=== PATIENT | male | born 1970 ===

== ENCOUNTER 2023-08-29 21:28 | Emergency (ER) | payer OTHER, SELFPAY ==
[2023-08-29 21:31] VITALS: BP 181/88; PULSE 66; RESP 20; TEMP 37.1; O2SAT 98
[2023-08-29 22:19] LABS: Influenza A QL RT-PCR Negative (Negative); Influenza B QL RT-PCR Negative (Negative); RSV RNA, RT-PCR Negative (Negative); SARS-CoV-2 RNA PCR Negative (Negative)
[2023-08-30 01:32] VITALS: BP 144/80; PULSE 64; RESP 15; O2SAT 95
[2023-08-30] MEDS: SODIUM CHLORIDE 0.9% IV 1,000 ML 999 ML IV CONT (01:32)
[2023-08-30 01:41] LABS: Basophils Absolute Auto 0.1 K/mm3 (0.0-0.1); Basophils Percent Auto 0.8 % (0.2-1.2); Eosinophils Absolute Auto 0.2 K/mm3 (0-0.3); Eosinophils Percent Auto 1.7 % (0-4.4); Hematocrit 40.5 % (42.0-52.0); Hemoglobin 14.1 g/dL (14.0-18.0); Immature Granulocyte Absolute 0.05 K/mm3 (0.00-0.031); Immature Granulocyte Percent A 0.5 % (0-0.5); Immature Platelet Fraction Pct 6.6 % (0.9-11.2); Lymphocytes Absolute Auto 1.48 K/mm3 (0.9-3.2); Lymphocytes Percent Auto 14.8 % (18.3-44.2); Mean Corpuscular HGB Conc 34.8 g/dl (32-36); Mean Corpuscular Hemoglobin 30.9 pg (26-34); Mean Corpuscular Volume 88.8 fl (80-100); Mean Platelet Volume 10.7 fl (7.4-10.4); Monocytes Percent Auto 9.5 % (2.6-8.5); Neutrophils Absolute Auto 7.3 K/mm3 (1.3-6.7); Neutrophils Percent Auto 72.7 % (45.5-73.1); Platelet Count Result 146 k/mm3 (150-375); Red Blood Count 4.56 M/mm3 (4.6-6.20); Red Cell Distribution Width 13.2 % (11.5-14.5)
[2023-08-30 01:47] LABS: Lactic Acid Reflex 1.1 mmol/L (0.7-2.0)
[2023-08-30 01:48] LABS: Alanine Aminotransferase 28 U/L (6-50); Albumin Level 4.2 g/dL (3.5-5.1); Alkaline Phosphatase 40 U/L (38-126); Anion Gap 6 mmol/L (4-12); Aspartate Amino Transferase 25 U/L (17-59); Bilirubin,Total 1.2 mg/dL (0.2-1.3); Blood Urea Nitrogen 17 mg/dL (9-20); Calcium 8.7 mg/dL (8.4-10.2); Carbon Dioxide 30 mmol/L (22-30); Chloride 106 mmol/L (98-107); Estimated CRCL calculation 103 ml/min; Estimated Glomerular Filt Rate > 60; Glucose 141 mg/dL (65-110); Potassium 3.1 mmol/L (3.4-5.0); Sodium 142 mmol/L (137-145)
[2023-08-30] MEDS: POTASSIUM CHLORIDE 20 MEQ PACKET (FOR LIQUID) 40 MEQ PO (02:04)
[2023-08-30 02:12] LABS: Appearance Urine Cloudy (Clear); Bacteria Urine None Seen /hpf; Bilirubin Urine Negative (Negative); Blood Urine Negative (Negative); Color Urine Yellow (Yellow); Glucose Urine UA 1+ mg/dL (Negative); Ketones Urine Negative (Negative); Leukocyte Esterase Ur Negative LEU/UL (Negative); Nitrate Urine Negative (Negative); Non Pathogenic Casts 0-2; Protein Urine Negative (Negative); RBC Urine 0-2 /hpf (0-2); Specific Grav Ur 1.019 (1.001-1.035); Squamous Epithelial Cell Urine None Seen /hpf (Few); WBC Urine 0-5 /hpf (0-3); pH Urine 7.5 (5.0-9.0)
[2023-08-30 02:30] LABS: Add Urine Microscopic? YES
--- NOTE | 2023-08-30 02:54 | ED.FEVER ---
HPI - Fever General Chief Complaint: Fever Stated Complaint: Fever, body aches Time Seen by Provider: 08/30/23 00:38 Source: patient and family Limitations: no limitations History of Present Illness HPI Narrative: Patient is a 53-year-old male presents to the emergency department complaining of fever, body aches, headache, rash in his left leg. Patient notes yesterday he was having some chills and then took his temperature and was found to be 103 and then took Tylenol and came down, notes the was also having some body aches which have persisted into today and also mild headache which is overall been improving with Tylenol. Patient then noticed that his left leg. I have rash on a which he has not seen before And it is painful. Patient denies chest pain, difficulty breathing, history of blood clots. Patient admits to history of bilateral lower extremity swelling but never unilateral. Patient denies cough, your pain, sore throat, nasal congestion, runny nose, numbness, weakness, recent injuries, recent illness, sick contacts, confusion. Related Data Home Medications Medication Instructions Recorded Confirmed cannabis percutaneous 01/04/21 02/11/23 cholecalciferol (vitamin D3) 50 2,000 unit PO DAILY 01/04/21 02/11/23 mcg (2,000 unit) capsule Allergies Allergy/AdvReac Type Severity Reaction Status Date / Time No Known Allergies Allergy Verified 08/29/23 21:34 Review of Systems Review of Systems: A 10 system review of systems was completed on the patient and is negative except for what is stated in the HPI. Nursing and ancillary documentation was reviewed. [facility] Past Medical History Medical History (Updated 08/30/23 @ 03:27 by Kush Hernandez DO) Abnormal levels of other serum enzymes AST 47 and ALT 38 on 01/22/2021. AST 32 and ALT 27 on 01/16/2022. Aortic stenosis with mitral and aortic insufficiency echo May, with severe elevated AH with ejection fraction 70% with moderate to severe aortic stenosis with moderate regurgitation with [id number] mitral valve regurgitation and diastolic dysfunction. BMI 38.0-38.9,adult BMI 40.0-44.9, adult COVID-19 (~08/2021) Encounter for prostate cancer screening PSA 0.5 on . PSA 1.4 on 01/16/2022. PSA 0.6 on 02/22/2023. Encounter for wellness examination in adult Morbid obesity with BMI of 40.0-44.9, adult Obesity (BMI 30-39.9) Protein in urine (01/22/21) 1+ protein on 01/22/2021. Urinalysis normal on 02/22/2023. Thoracic ascending aortic aneurysm (09/12/21) 4.5 cm ascending thoracic aortic aneurysm 4.[address] 09/12/2021. Ureteral stone Vitamin D deficiency, unspecified Vitamin-D elevated at 79.5 on 01/22/2021. Level normal at 43.6 on 01/16/2022. Family History Family History (Updated 08/24/18 @ 07:44 by DOCTOR UNKNOWN) Father Patient's father is , Onset Age: 72 Carcinoma of colon Family history of primary malignant neoplasm of liver Grandparent Cerebrovascular accident Family history of malignant neoplasm Social History Social History (Updated 01/28/22 @ 08:05 by Fina Gallego MA) Smoking status: Former smoker Alcohol intake: current Substance use: never Substance use type: does not use Lack of Transportation: No Lack of Food: Never True Current Housing: I Have Housing Concerned About Future Housing: No Difficulty Paying Gas/Electric Bills: No Difficulty Paying for Meds: No Currently Unemployed: No Education: Trade/Vocational Certificate Difficulty w/ Childcare or Family Care: No Comments At time of signature, I have reviewed and agree with nursing past medical, surgical, social and family history unless otherwise noted. Please see the nursing chart for further information. There is no relevant family history pertinent to the presenting complaint. Exam Narrative: CONST: No acute distress. Well nourished. HENMT: Head is normocephalic and atraumatic. Moist mucous me
[2023-08-30 03:13] VITALS: BP 150/90; PULSE 96; RESP 15; O2SAT 100
[2023-08-30] MEDS: CEPHALEXIN 500 MG CAPSULE PO (03:29)
[2023-08-30 04:06] VITALS: BP 140/84; PULSE 68; RESP 14; O2SAT 100
== END 2023-08-30 04:07 | disposition home or self-care (01) ==
PROVIDERS: Emergency Provider Student in an Organized Health Care Education/Training Program; PCP Family Medicine
DX: B34.9 Viral infection, unspecified (principal); L03.116 Cellulitis of left lower limb; Z20.822 Contact with and (suspected) exposure to COVID-19; I08.0 Rheumatic disorders of both mitral and aortic valves; E55.9 Vitamin D deficiency, unspecified; E66.01 Morbid (severe) obesity due to excess calories; Z68.41 Body mass index [BMI] 40.0-44.9, adult; Z86.16 Personal history of COVID-19; Z87.442 Personal history of urinary calculi; Z87.891 Personal history of nicotine dependence; Z79.899 Other long term (current) drug therapy; Z79.85 Long-term (current) use of injectable non-insulin antidiabetic drugs
CPT/HCPCS: 36415; 80053; 81001; 83605; 85025; 85055; 85380; 87637; 96360; 99283; A9270; J7030

== ENCOUNTER 2023-08-30 07:09 | Outpatient (CLI) | payer OTHER, SELFPAY ==
--- NOTE | ~2023-08-30 | US_ITS ---
EXAMINATION: US venous doppler [facility] DATE: 08/30/2023 07:36 INDICATION: Lower limb pain. Other specified soft tissue disorders. TECHNIQUE: Grayscale ultrasound images without and with compression and Doppler ultrasound images of the bilateral lower extremity veins were obtained. COMPARISON: None. FINDINGS: The visualized portions of right common femoral vein, profunda (deep) femoral vein, femoral vein, pop liteal vein, peroneal veins, posterior tibial veins, and greater saphenous vein outflow are patent. The visualized portions of left common femoral vein, profunda femoral vein, femoral vein, popliteal v ein, peroneal veins, posterior tibial veins, and greater saphenous vein outflow are patent. IMPRESSION: 1. No deep venous thrombosis. Reviewed, dictated and finalized at location A.
== END 2023-08-30 07:10 | disposition home or self-care (01) ==
PROVIDERS: PCP Family Medicine; Visit Provider Student in an Organized Health Care Education/Training Program
DX: M79.89 Other specified soft tissue disorders (principal)
CPT/HCPCS: 36415; 80053; 81001; 83605; 85025; 85055; 85380; 93970; 96360; A9270; J7030

== ENCOUNTER 2023-09-01 09:44 | Inpatient (IN) | payer OTHER, SELFPAY ==
[2023-09-01] VITALS (22 sets, daily range): BP systolic 127–186; BP diastolic 80–123; PULSE 109–135; RESP 18–20; TEMP 35.9–37.2; O2SAT 95–98; BMI 38.8
--- NOTE | ~2023-09-01 | XR_ITS ---
XR chest 2V Ordering provider: Umer Bain MD History: 53 years Male with . SOA/RAPID HR . Comparison: None. FINDINGS: MEDIASTINUM: The cardiac silhouette is not enlarged. LUNGS: No infiltrates, effusions or pneumothorax. OTHER: No free air under the diaphragm. Degenerative changes of the spine. IMPRESSION: No acute cardiopulmonary pathology. Reviewed, dictated and finalized at location A.
--- NOTE | 2023-09-01 09:49 | ECG_ITS ---
Test Date: 2023-09-01 09:54:31 Measurements Intervals [place] Rate: 120 P: 0 [place]: 0 QRS: 35 QRSD: 94 T: 0 QT: 299 QTc: 424 Interpretive Statements ATRIAL FLUTTER/TACHYCARDIA WITH RAPID VENTRICULAR RESPONSE MARKED ST DEPRESSION IN ANTEROLATERAL LEADS, CONSIDER SUBENDOCARDIAL INJURY BASELINE WANDER- V1 ABNORMAL ECG No previous ECG available for comparison Electronically Signed On 09-01-2023 10:01:19 CDT by Mata Green D.O.
[2023-09-01] MEDS: METOPROLOL TARTRATE INJ 5 MG/5 ML VIAL IV PUSH ×2 (10:11→11:07)
[2023-09-01 10:21] LABS: Basophils Absolute Auto 0.1 K/mm3 (0.0-0.1); Basophils Percent Auto 1.7 % (0.2-1.2); Eosinophils Absolute Auto 0.3 K/mm3 (0-0.3); Eosinophils Percent Auto 4.6 % (0-4.4); Hematocrit 46.6 % (42.0-52.0); Hemoglobin 16.1 g/dL (14.0-18.0); Immature Granulocyte Absolute 0.03 K/mm3 (0.00-0.031); Immature Granulocyte Percent A 0.5 % (0-0.5); Lymphocytes Absolute Auto 1.19 K/mm3 (0.9-3.2); Lymphocytes Percent Auto 18.1 % (18.3-44.2); Mean Corpuscular HGB Conc 34.5 g/dl (32-36); Mean Corpuscular Hemoglobin 30.3 pg (26-34); Mean Corpuscular Volume 87.8 fl (80-100); Mean Platelet Volume 11.3 fl (7.4-10.4); Monocytes Absolute Auto 0.4 K/mm3 (0.1-0.6); Monocytes Percent Auto 6.5 % (2.6-8.5); Neutrophils Absolute Auto 4.5 K/mm3 (1.3-6.7); Neutrophils Percent Auto 68.6 % (45.5-73.1); Platelet Count Result 201 k/mm3 (150-375); Red Blood Count 5.31 M/mm3 (4.6-6.20); Red Cell Distribution Width 12.7 % (11.5-14.5); White Blood Count 6.6 K/mm3 (4.5-10.0)
[2023-09-01 10:30] LABS: Alanine Aminotransferase 30 U/L (6-50); Alkaline Phosphatase 45 U/L (38-126); Anion Gap 14 mmol/L (4-12); Aspartate Amino Transferase 35 U/L (17-59); Bilirubin,Total 1.1 mg/dL (0.2-1.3); Blood Urea Nitrogen 21 mg/dL (9-20); Calcium 9.4 mg/dL (8.4-10.2); Carbon Dioxide 26 mmol/L (22-30); Chloride 102 mmol/L (98-107); Estimated CRCL calculation 102 ml/min; Estimated Glomerular Filt Rate > 60; Glucose 153 mg/dL (65-110); INR 1.1; Potassium 3.4 mmol/L (3.4-5.0); Prothrombin Time 14.2 Seconds (11.1-14.7); Sodium 142 mmol/L (137-145)
[2023-09-01 10:31] LABS: Partial Thromboplastin Time 27.4 Seconds (22.3-36.8)
[2023-09-01 10:39] LABS: NT Pro B Type Natriuretic Pept 182 pg/mL (19.9-100)
[2023-09-01 10:49] LABS: Troponin I 0.058 ng/mL (0.000-0.034)
[2023-09-01] MEDS: dilTIAZem HCl INJ 25 MG/5 ML VIAL 10 MG IV PUSH (11:42)
--- NOTE | 2023-09-01 12:29 | ED.ARRPALP ---
HPI - Arrhythmia/Palpitations General Chief Complaint: Arrhythmia/Palpitations Stated Complaint: heart is racing Time Seen by Provider: 09/01/23 09:48 History of Present Illness HPI narrative: Patient is a 53-year-old male who presents ER with her dosing of the heart. He was sent in his PCP office. He is there to follow-up on a cellulitis evaluation. Still has mild redness to the left leg. While in the office he was tachycardic in the 120s. He is diaphoretic and short of breath. No chest pain. He has known aortic stenosis. He sees Dr. Schulte. compliant with home medications. Patient also had outpatient ultrasound study to rule out DVT this week. Related Data Home Medications Medication Instructions Recorded Confirmed cholecalciferol (vitamin D3) 50 2,000 unit PO DAILY 01/04/21 09/01/23 mcg (2,000 unit) capsule hydrochlorothiazide 25 mg tablet 25 mg PO . q.a.m. 09/01/23 09/01/23 Allergies Allergy/AdvReac Type Severity Reaction Status Date / Time No Known Allergies Allergy Verified 09/01/23 11:14 Review of Systems Review of Systems: All systems reviewed & are unremarkable except as noted in HPI and below Constitutional: Constitutional: Reports no additional constitutional complaints ENT: Reports system reviewed and no additional complaints, except as documented Cardiovascular: Cardiovascular: Denies chest pain, Reports rapid heart rate and Denies radiating jaw, neck or arm pain Respiratory: Respiratory: Denies chest congestion, Reports dyspnea and Denies wheezing Gastrointestinal: Gastrointestinal: Reports no additional gastrointestinal complaints Musculoskeletal: Musculoskeletal: Reports no additional musculoskeletal complaints [facility] Past Medical History Medical History (Updated 09/01/23 @ 19:20 by Umer Bain MD) Abnormal levels of other serum enzymes AST 47 and ALT 38 on 01/22/2021. AST 32 and ALT 27 on 01/16/2022. Aortic stenosis with mitral and aortic insufficiency echo May, with severe elevated AH with ejection fraction 70% with moderate to severe aortic stenosis with moderate regurgitation with [id number] mitral valve regurgitation and diastolic dysfunction. BMI 38.0-38.9,adult Cellulitis of leg, left (~08/28/23) COVID-19 (~08/2021) Dyspnea on minimal exertion (09/01/23) Encounter for prostate cancer screening PSA 0.5 on . PSA 1.4 on 01/16/2022. PSA 0.6 on 02/22/2023. Encounter for wellness examination in adult Hypokalemia (08/29/23) potassium 3.1 08/29/2023 Morbid obesity with BMI of 40.0-44.9, adult Obesity (BMI 30-39.9) Protein in urine (01/22/21) 1+ protein on 01/22/2021. Urinalysis normal on 02/22/2023. Tachycardia (09/01/23) Thoracic ascending aortic aneurysm (09/12/21) 4.5 cm ascending thoracic aortic aneurysm 4.[address] 09/12/2021. Ureteral stone Vitamin D deficiency, unspecified Vitamin-D elevated at 79.5 on 01/22/2021. Level normal at 43.6 on 01/16/2022. Family History Family History Father Patient's father is , Onset Age: 72 Carcinoma of colon Family history of primary malignant neoplasm of liver Grandparent Cerebrovascular accident Family history of malignant neoplasm Social History Social History Smoking packs per day: 1 Smoking cigarettes per day: 20.0 Years smoked: 20 Smoking pack-years: 20.00 Smoking status: Former smoker Alcohol intake: never Substance use: current Substance use type: marijuana Last use: 08/31/23 Do You Feel Safe in your Home?: Yes Lack of Transportation: No Lack of Food: Never True Current Housing: I Have Housing Concerned About Future Housing: No Difficulty Paying Gas/Electric Bills: No Difficulty Paying for Meds: No Currently Unemployed: No Education: High School Diploma/GED Difficulty w/ Childcare or Family Care: No Spiritual care concerns: No
[2023-09-01] MEDS: dilTIAZem 100 MG/100 ML 100 MG/100 ML BAG IV CONT (12:50)
--- NOTE | 2023-09-01 12:56 | PC.NURSE ---
Pt denies any chest pain. Cardizem infusion initiated. Waiting IP room assignement
--- NOTE | 2023-09-01 13:16 | ECG_ITS ---
Test Date: 2023-09-01 13:19:05 Measurements Intervals [place] Rate: 124 P: 0 RI: 0 QRS: 53 QRSD: 97 T: 120 QT: 232 QTc: 333 Interpretive Statements ATRIAL FLUTTER/TACHYCARDIA WITH RAPID VENTRICULAR RESPONSE CONSIDER INFERIOR INFARCT, AGE INDETERMINATE ST-T WAVE ABNORMALITY IN ANTEROLATERAL LEADS- CONSIDER ISCHEMIA ABNORMAL ECG No significant changes Electronically Signed On 09-01-2023 13:23:08 CDT by Mata Grene D.O.
--- NOTE | 2023-09-01 13:25 | PC.NURSE ---
Attempted to call report to IMU. RN unable to take report at this time. Will all ER back
--- NOTE | 2023-09-01 15:30 | ADMGEN ---
This patient, Masood Cooper, was admitted to IMU Room 211-01. Patient/family oriented to hospital policies and general routines including ID bracelet, bed and alarms, visiting hours, pain management, procedures, bathroom and other care routines, personal items, smoking policy, room service/diet, and visiting hours. Information on how to activate the Rapid Response Team has been discussed. Patient/Family are encouraged to report perceived risks to care and to ask questions if they do not understand what they are told or what they should do.
--- NOTE | 2023-09-01 15:44 | PM.CNCAR ---
Assessment and Plan Assessment and plan (1) Aortic stenosis with mitral and aortic insufficiency: Code(s): I08.0 - Rheumatic disorders of both mitral and aortic valves Status: Acute (2) Atrial flutter by electrocardiogram: Code(s): I48.92 - Unspecified atrial flutter Status: Acute Plan This is a 53-year-old man known to have aortic valve stenosis which is asymptomatic but recently on echo has progressed to be severe by echo criteria. He now enters the hospital with atrial flutter with RVR. This is new onset atrial flutter since I am confident he was not in this on Friday in the emergency room as his heart rate was in the 60s. He was therefore the rash in his left calf shows no reason for them to have perform an EKG at that time. Since this is new onset atrial flutter I believe we should try to restore sinus rhythm and also because this arrhythmia will probably not be well tolerated for very long with severe aortic valve stenosis as well. I am going to start him on sotalol in place of his nebivolol and anticoagulate him with apixaban. If he persists in atrial flutter we will perform electrical cardioversion during this hospitalization. His echocardiogram demonstrates normal left ventricular systolic function and he has no history of ischemic heart disease. Lev Marroquin MD [facility] History of Present Illness History of Present Illness Consult date/time: 09/01/23 15:44 Reason For Visit: Atrial Flutter with RVR Narrative: This is a 53-year-old man I am seeing at the request of the hospitalist to assist with evaluation and management of atrial flutter. He is unknown to me prior to this encounter but he is known to my partner, Dr. Frederick because he has aortic valve disease. The patient was seen in our hospital's emergency room on Friday because he was concerned about a rash that he had is left lower extremity in the calf he was also febrile that he noted at home. He was felt to probably have some cellulitis in the leg and was started on antibiotics and he followed up with his PCP today. He was no longer having a fever and his rash looked better but it was noted in the office that he was tachycardic. Review of his chart from the emergency room on Friday showed heart rate to be in the 60s upon arrival. In the office she was tachycardic with a heart rate 130-140 and so he was sent back to the emergency department. Emergency room ECG demonstrated atrial flutter with rapid ventricular response. He was given some intravenous diltiazem as well as some intravenous metoprolol and admitted to the hospital for further evaluation. He was not really aware of the sense of tachycardia or palpitations or any other distress related to his arrhythmia. He reports having no arrhythmic history is in the past. He does see my partner as mentioned above because of aortic stenosis. This has been followed longitudinally in the office and was moderate initially but actually just a couple of months ago in the office was seen in the follow-up and was noted to have progressed to severe aortic valve stenosis high since he was asymptomatic short interval follow-up for scheduled but he was not felt to require aortic valve replacement since he was having no symptoms. In this setting I am seeing him in consultation today. His 12 lead electrocardiogram shows typical atrial flutter primarily with 2-3 to 1 conduction. Review of Systems Constitutional: Constitutional: Reports no additional constitutional complaints Eyes: Eyes: Reports no additional eye complaints ENT: Reports system reviewed and no additional complaints, except as documented Cardiovascular: Cardiovascular: Reports palpitations Respiratory: Respiratory: Reports no additional respiratory complaints Gastrointestinal: Gastrointestinal: Reports no additional gastrointestinal complaints Musculoskeletal: Musculoskeletal: Reports no additional musculoskeletal complaints Integumentary
[2023-09-01 16:43] LABS: Troponin I 0.116 ng/mL (0.000-0.034)
--- NOTE | 2023-09-01 18:06 | PM.IMHP ---
H&P: HPI History of Present Illness Date/Time: 09/01/23 18:06 Chief Complaint: Atrial flutter RVR Narrative: This is a 53-year-old male with a significant past medical history of hypertension, hypothyroidism, hyperlipidemia, aortic stenosis, CHEO, oral cancer, obesity who presented to the hospital with a flutter with RVR. Patient states that he was at his primary care physician's office for re-evaluation of cellulitis to his left lower extremity when he was noted to have high heart rate. His primary care physician sent him to the hospital for further evaluation of his tachycardia. He denies any fever, chills, nausea, vomiting, diarrhea, abdominal pain, chest pain, palpitation, lightheadedness, dizziness. He does report that he was feeling short of breath however he attributed that to being overweight. Workup in the hospital included a chest x-ray which was negative. Initial labs showed a normal white blood cell count of 6.6, troponin 0.058> 0.116, proBNP 182. EKG showed a flutter with RVR with a rate of 124. Patient was given 2 doses of metoprolol 5 mg IV push, diltiazem 10 mg IV push, Zofran, and started on a diltiazem drip at 10 milligrams/hour while in the ED. Review of Systems Review of Systems: All systems reviewed & are unremarkable except as noted in HPI and below Constitutional: Constitutional: Reports as per HPI and Reports no additional constitutional complaints Eyes: Eyes: Reports as per HPI and Reports no additional eye complaints ENT: Reports system reviewed and no additional complaints, except as documented and Reports as per HPI Cardiovascular: Cardiovascular: Reports as per HPI and Reports no additional cardiovascular complaints Respiratory: Respiratory: Reports as per HPI and Reports no additional respiratory complaints Gastrointestinal: Gastrointestinal: Reports as per HPI and Reports no additional gastrointestinal complaints Genitourinary: Genitourinary: Reports no additional male genitourinary complaints and Reports as per HPI Musculoskeletal: Musculoskeletal: Reports no additional musculoskeletal complaints and Reports as per HPI Integumentary/Breasts: Skin/Breast: Reports rash Comments: Undergoing treatment for cellulitis currently on Keflex Neurologic: Reports system reviewed and no additional complaints, except as documented and Reports as per HPI Psychiatric: Psychiatric: Reports no additional psychiatric complaints and Reports as per HPI [facility] Past Medical History Medical History Abnormal levels of other serum enzymes AST 47 and ALT 38 on 01/22/2021. AST 32 and ALT 27 on 01/16/2022. Aortic stenosis with mitral and aortic insufficiency echo May, with severe elevated AH with ejection fraction 70% with moderate to severe aortic stenosis with moderate regurgitation with [id number] mitral valve regurgitation and diastolic dysfunction. BMI 38.0-38.9,adult Cellulitis of leg, left (~08/28/23) COVID-19 (~08/2021) Dyspnea on minimal exertion (09/01/23) Encounter for prostate cancer screening PSA 0.5 on . PSA 1.4 on 01/16/2022. PSA 0.6 on 02/22/2023. Encounter for wellness examination in adult History of oral cancer Recurrence with 1.5 x 1.7 x 1.6 cm mass left submandibular space 09/12/2021. Hypokalemia (08/29/23) potassium 3.1 08/29/2023 Morbid obesity with BMI of 40.0-44.9, adult Obesity (BMI 30-39.9) Protein in urine (01/22/21) 1+ protein on 01/22/2021. Urinalysis normal on 02/22/2023. Tachycardia (09/01/23) Thoracic ascending aortic aneurysm (09/12/21) 4.5 cm ascending thoracic aortic aneurysm 4.[address] 09/12/2021. Ureteral stone Vitamin D deficiency, unspecified Vitamin-D elevated at 79.5 on 01/22/2021. Level normal at 43.6 on 01/16/2022. Surgical History Surgical History H/O spinal fusion Hx of cholecystectomy Family History Family History
[2023-09-01] MEDS: HYDROcodone/acetaminophen (*CRX) 5-325 MG TABLET 1 TAB PO (18:40)
[2023-09-01] MEDS: SOTALOL HCL 80 MG TABLET PO (20:55)
[2023-09-01] MEDS: APIXABAN 5 MG TABLET PO (20:55)
[2023-09-01] MEDS: dilTIAZem 100 MG/100 ML 100 MG/100 ML BAG 10 MG IV CONT (20:56)
--- NOTE | 2023-09-01 23:00 | ECG_ITS ---
Test Date: 2023-09-01 23:03:42 Measurements Intervals [place] Rate: 100 P: 0 [place]: 0 QRS: 43 QRSD: 98 T: 234 QT: 389 QTc: 502 Interpretive Statements ATRIAL FLUTTER/TACHYCARDIA WITH RAPID VENTRICULAR RESPONSE CONSIDER INFERIOR INFARCT, AGE INDETERMINATE ST-T WAVE ABNORMALITY IN ANTEROLAT/HIGH LAT LEADS- CONSIDER ISCHEMIA ABNORMAL ECG Compared to ECG 09/01/2023 13:19:05 HEART RATE HAS DECREASED Electronically Signed On 09-02-2023 09:11:53 CDT by Mata Green D.O.
[2023-09-01] MEDS: CEPHALEXIN 500 MG CAPSULE PO (23:03)
[2023-09-02] VITALS (24 sets, daily range): BP systolic 101–137; BP diastolic 67–119; PULSE 48–129; RESP 18–22; TEMP 35.9–36.7; O2SAT 95–99
[2023-09-02] MEDS: dilTIAZem 100 MG/100 ML 100 MG/100 ML BAG IV CONT ×2 (00:25→13:36)
[2023-09-02] MEDS: CEPHALEXIN 500 MG CAPSULE PO ×4 (03:47→20:21)
[2023-09-02] MEDS: HYDROcodone/acetaminophen (*CRX) 5-325 MG TABLET 1 TAB PO (03:51)
[2023-09-02 04:12] LABS: Basophils Absolute Auto 0.1 K/mm3 (0.0-0.1); Basophils Percent Auto 1.4 % (0.2-1.2); Eosinophils Absolute Auto 0.3 K/mm3 (0-0.3); Eosinophils Percent Auto 3.3 % (0-4.4); Hemoglobin 15.2 g/dL (14.0-18.0); Immature Granulocyte Absolute 0.04 K/mm3 (0.00-0.031); Immature Granulocyte Percent A 0.5 % (0-0.5); Lymphocytes Absolute Auto 2.59 K/mm3 (0.9-3.2); Lymphocytes Percent Auto 30.7 % (18.3-44.2); Mean Corpuscular HGB Conc 34.5 g/dl (32-36); Mean Corpuscular Hemoglobin 30.5 pg (26-34); Mean Corpuscular Volume 88.2 fl (80-100); Mean Platelet Volume 10.7 fl (7.4-10.4); Monocytes Absolute Auto 0.6 K/mm3 (0.1-0.6); Monocytes Percent Auto 7.3 % (2.6-8.5); Neutrophils Absolute Auto 4.8 K/mm3 (1.3-6.7); Neutrophils Percent Auto 56.8 % (45.5-73.1); Platelet Count Result 202 k/mm3 (150-375); Red Blood Count 4.99 M/mm3 (4.6-6.20); Red Cell Distribution Width 12.8 % (11.5-14.5); White Blood Count 8.5 K/mm3 (4.5-10.0)
[2023-09-02 04:25] LABS: Alanine Aminotransferase 29 U/L (6-50); Albumin Level 4.1 g/dL (3.5-5.1); Alkaline Phosphatase 45 U/L (38-126); Anion Gap 9 mmol/L (4-12); Aspartate Amino Transferase 37 U/L (17-59); Bilirubin,Total 1.1 mg/dL (0.2-1.3); Blood Urea Nitrogen 22 mg/dL (9-20); Calcium 9.2 mg/dL (8.4-10.2); Carbon Dioxide 29 mmol/L (22-30); Chloride 100 mmol/L (98-107); Estimated CRCL calculation 86 ml/min; Estimated Glomerular Filt Rate 58; Glucose 128 mg/dL (65-110); Magnesium 2.2 mg/dL (1.6-2.3); Potassium 3.4 mmol/L (3.4-5.0); Sodium 138 mmol/L (137-145)
[2023-09-02] MEDS: LEVOTHYROXINE SODIUM 100 MCG TABLET 200 MCG PO (06:06)
[2023-09-02] MEDS: amLODIPine BESYLATE 10 MG TABLET PO (08:54)
[2023-09-02] MEDS: SOTALOL HCL 80 MG TABLET PO (08:54)
[2023-09-02] MEDS: FENOFIBRATE NANOCRYSTALLIZED 145 MG TABLET PO (08:54)
[2023-09-02] MEDS: CHOLECALCIFEROL 1,000 UNITS TABLET 2000 UNITS PO (08:54)
[2023-09-02] MEDS: APIXABAN 5 MG TABLET PO ×2 (08:54→20:21)
[2023-09-02] MEDS: lisinopriL 20 MG TABLET 40 MG PO (08:55)
--- NOTE | 2023-09-02 09:03 | PM.PNCARD ---
Progress Note: A&P Assessment and Plan (1) Aortic stenosis with mitral and aortic insufficiency: Code(s): I08.0 - Rheumatic disorders of both mitral and aortic valves Status: Acute Assessment and Plan: Moderate to severe valvular disease. (2) Atrial flutter by electrocardiogram: Code(s): I48.92 - Unspecified atrial flutter Status: Acute Assessment and Plan: Remains in atrial fibrillation on sotalol. Continue with sotalol with close monitoring of QTc (502 msec on last night's EKG). Closely monitor electrolytes with daily BMP and magnesium. Continuous telemetry. Subjective Date/time seen: 09/02/23 09:03 Interval history: Cardiology follow up for atrial flutter, Date of service 09/02/2023: Feels okay this morning but is still in atrial fibrillation. Review of Systems Constitutional: Constitutional: Reports no additional constitutional complaints Eyes: Eyes: Reports no additional eye complaints ENT: Reports system reviewed and no additional complaints, except as documented Cardiovascular: Cardiovascular: Reports palpitations Respiratory: Respiratory: Reports no additional respiratory complaints Gastrointestinal: Gastrointestinal: Reports no additional gastrointestinal complaints Musculoskeletal: Musculoskeletal: Reports no additional musculoskeletal complaints Integumentary/Breasts: Skin/Breast: Reports rash Neurologic: Reports system reviewed and no additional complaints, except as documented Endocrine: Endocrine: Reports no additional endocrine complaints and Reports palpitations Hematologic/Lymphatic: Hematologic/Lymphatic: Reports no additional hematologic/lymphatic complaints Allergic/Immunologic: Allergic/Immunologic: Reports no additional allergic/immunologic complaints Exam Const: General: comfortable and no acute distress Other: Very pleasant gentleman appearing his stated age comfortable cooperative no distress of any kind HENMT: Mouth: Yes moist mucous membranes Eyes: Sclera: sclerae normal Neck: Neck: supple and no JVD Thyroid: thyroid normal Resp: Effort & Inspection: normal respiratory effort Auscultation: clear to auscultation bilaterally Cardio: Rate: tachycardic Rhythm: abnormal rhythm irregularly irregular GI: Auscultation: normal bowel sounds Skin: General skin exam: normal color Neuro: Other: Alert and oriented x3 Extrem: Other: Good perfusion, no edema Objective Data Vital Signs Vital Signs: Vital Signs - 24 hr 09/01/23 09:49 09/01/23 09:52 09/01/23 10:11 Temperature 36.8 C Pulse Rate 123 H 123 H 124 H Respiratory Rate 18 Blood Pressure 186/123 H Pulse Oximetry 96 Oxygen Delivery Fraction of Inspired Oxygen 09/01/23 11:07 09/01/23 11:14 09/01/23 11:43 Temperature Pulse Rate 122 H 123 H 122 H Respiratory Rate 18 18 Blood Pressure 141/103 H 140/101 H Pulse Oximetry 98 97 Oxygen Delivery Fraction of Inspired Oxygen 09/01/23 12:50 09/01/23 12:56 09/01/23 11:15 Temperature 37.2 C Pulse Rate 124 H 122 H Respiratory Rate 20 Blood Pressure 142/101 H 142/101 H Pulse Oximetry 96 97 Oxygen Delivery Room Air Fraction of Inspired Oxygen 09/01/23 13:20 09/01/23 13:42 09/01/23 14:21 Temperature 37.2 C 36.8 C Pulse Rate 123 H 122 H 124 H Respiratory Rate 20 20 Blood Pressure 127/95 H 127/95 H 138/87 Pulse Oximetry 96 96 Oxygen Delivery Fraction of Inspired Oxygen 09/01/23 14:00 09/01/23 16:32 09/01/23 16:00 Temperature 35.9 C L Pulse Rate 121 H 112 H 125 H Respiratory Rate 20 Blood Pressure 136/100 H Pulse Oximetry 96 Oxygen Delivery Fraction of Inspired Oxygen 09/01/23 18:00 09/01/23 20:00 09/01/23 20:55 Temperature 36.2 C L Pulse Rate 135 H 109 H 130 H Respiratory Rate 20 Blood Pressure 135/84 Pulse Oximetry 95 Oxygen Delivery Fraction of Inspired Oxygen 09/01/23 20:56 09/01/23 20:0
--- NOTE | 2023-09-02 10:00 | ECG_ITS ---
Test Date: 2023-09-02 10:54:42 Measurements Intervals [place] Rate: 110 P: 0 [place]: 0 QRS: 37 QRSD: 97 T: 96 QT: 335 QTc: 453 Interpretive Statements ATRIAL FIBRILLATION WITH RAPID VENTRICULAR RESPONSE ST-T WAVE ABNORMALITY IN ANTEROLAT/HIGH LAT LEADS- CONSIDER ISCHEMIA BASELINE WANDER- I, II, III, AVR, AVL, AVF ABNORMAL ECG Compared to ECG 09/01/2023 23:03:42 Atrial fibrillation now present Electronically Signed On 09-02-2023 11:02:05 CDT by Mata Green D.O.
--- NOTE | 2023-09-02 10:26 | P.PNIM_ITS ---
Progress Note: A&P Assessment and Plan (1) Atrial flutter with rapid ventricular response: Code(s): I48.92 - Unspecified atrial flutter Status: Acute Assessment and Plan: 09/01/23: * New onset a flutter with RVR * Patient was given 2 doses of metoprolol 5 mg IV push, 10 mg diltiazem while in the ED * He was started on a diltiazem drip at 10 mg per hour * Cardiology consulted * Patient placed on Eliquis 5 mg b.i.d. and sotalol 80 mg b.i.d. * If patient does not convert overnight, will likely need cardioversion 09/02/23: * Patient still in A flutter with RVR with a rate of 120 * Increased Diltiazem up to 7.5 mg per hour for better control, Patient was turned down to 5 mg/hr last night. * Cardiology following and awaiting further input. * Continue Eliquis and Sotalol (2) Aortic valve stenosis with insufficiency: Qualifiers: Cardiac valve disease etiology: etiology unspecified Qualified Code(s): I35.2 - Nonrheumatic aortic (valve) stenosis with insufficiency Code(s): I35.2 - Nonrheumatic aortic (valve) stenosis with insufficiency Status: Acute Assessment and Plan: 09/02/23: * Moderate aortic stenosis that progressed to severe on most recent echo per Cardiology note * Will likely need TAVR (3) Cellulitis of leg, left: Onset Date: ~08/28/23 Code(s): L03.116 - Cellulitis of left lower limb Status: Acute Assessment and Plan: 09/01/23: * Continue Keflex * Patient had venous Doppler which was negative for DVT on 08/30/2023 09/02/23: * No change to current treatment plan (4) Essential (primary) hypertension: Code(s): I10 - Essential (primary) hypertension Status: Acute Assessment and Plan: 09/01/23: * Blood pressure ranging 135/84 to 142/101 * Amlodipine-benazepril on hold due to being non formulary * Will continue hydrochlorothiazide * Will start amlodipine 10 mg daily and lisinopril 40 mg daily in replacement of his home med 09/02/23: * Blood pressures ranging 111/81- 137/119 * Continue with treatment plan (5) Hypothyroidism, unspecified: Qualifiers: Hypothyroidism type: unspecified Qualified Code(s): E03.9 - Hypothyroidism, unspecified Code(s): E03.9 - Hypothyroidism, unspecified Status: Acute Assessment and Plan: 09/01/23: * Continue Synthroid 09/02/23: * No change to current treatment plan (6) CHEO on CPAP: Code(s): G47.33 - Obstructive sleep apnea (adult) (pediatric); Z99.89 - Dependence on other enabling machines and devices Status: Acute Assessment and Plan: 09/01/23: * Continue CPAP at night * Patient reports compliance 09/02/23: * No change to current treatment plan (7) Obesity (BMI 30-39.9): Code(s): E66.9 - Obesity, unspecified Status: Acute Assessment and Plan: 09/01/23: * BMI 38.9, 137.3 kg * Educated on lifestyle changes 09/02/23: * No change to current treatment plan Time Spent With Patient Time with patient: 25 - 35 minutes Subjective Date/time seen: 09/02/23 10:26 Interval history: Interval history: This is a 53-year-old male with a significant past medical history of hypertension, hypothyroidism, hyperlipidemia, aortic stenosis, CHEO, oral cancer, obesity who presented to the hospital with a flutter with RVR. Patient states that he was at his primary care physician's office for re-evaluation of cellulitis to his left lower extremity when he was noted to have high heart rate. His primary care physician sent him to the
--- NOTE | 2023-09-02 10:26 | PM.IMPN ---
Progress Note: A&P Assessment and Plan (1) Atrial flutter with rapid ventricular response: Code(s): I48.92 - Unspecified atrial flutter Status: Acute Assessment and Plan: 09/01/23: New onset a flutter with RVR Patient was given 2 doses of metoprolol 5 mg IV push, 10 mg diltiazem while in the ED He was started on a diltiazem drip at 10 mg per hour Cardiology consulted Patient placed on Eliquis 5 mg b.i.d. and sotalol 80 mg b.i.d. If patient does not convert overnight, will likely need cardioversion 09/02/23: Patient still in A flutter with RVR with a rate of 120 Increased Diltiazem up to 7.5 mg per hour for better control, Patient was turned down to 5 mg/hr last night. Cardiology following and awaiting further input. Continue Eliquis and Sotalol (2) Aortic valve stenosis with insufficiency: Qualifiers: Cardiac valve disease etiology: etiology unspecified Qualified Code(s): I35.2 - Nonrheumatic aortic (valve) stenosis with insufficiency Code(s): I35.2 - Nonrheumatic aortic (valve) stenosis with insufficiency Status: Acute Assessment and Plan: 09/02/23: Moderate aortic stenosis that progressed to severe on most recent echo per Cardiology note Will likely need TAVR (3) Cellulitis of leg, left: Onset Date: ~08/28/23 Code(s): L03.116 - Cellulitis of left lower limb Status: Acute Assessment and Plan: 09/01/23: Continue Keflex Patient had venous Doppler which was negative for DVT on 08/30/2023 09/02/23: No change to current treatment plan (4) Essential (primary) hypertension: Code(s): I10 - Essential (primary) hypertension Status: Acute Assessment and Plan: 09/01/23: Blood pressure ranging 135/84 to 142/101 Amlodipine-benazepril on hold due to being non formulary Will continue hydrochlorothiazide Will start amlodipine 10 mg daily and lisinopril 40 mg daily in replacement of his home med 09/02/23: Blood pressures ranging 111/81- 137/119 Continue with treatment plan (5) Hypothyroidism, unspecified: Qualifiers: Hypothyroidism type: unspecified Qualified Code(s): E03.9 - Hypothyroidism, unspecified Code(s): E03.9 - Hypothyroidism, unspecified Status: Acute Assessment and Plan: 09/01/23: Continue Synthroid 09/02/23: No change to current treatment plan (6) CHEO on CPAP: Code(s): G47.33 - Obstructive sleep apnea (adult) (pediatric); Z99.89 - Dependence on other enabling machines and devices Status: Acute Assessment and Plan: 09/01/23: Continue CPAP at night Patient reports compliance 09/02/23: No change to current treatment plan (7) Obesity (BMI 30-39.9): Code(s): E66.9 - Obesity, unspecified Status: Acute Assessment and Plan: 09/01/23: BMI 38.9, 137.3 kg Educated on lifestyle changes 09/02/23: No change to current treatment plan Time Spent With Patient Time with patient: 25 - 35 minutes Subjective Date/time seen: 09/02/23 10:26 Interval history: Interval history: This is a 53-year-old male with a significant past medical history of hypertension, hypothyroidism, hyperlipidemia, aortic stenosis, CHEO, oral cancer, obesity who presented to the hospital with a flutter with RVR. Patient states that he was at his primary care physician's office for re-evaluation of cellulitis to his left lower extremity when he was noted to have high heart rate. His primary care physician sent him to the hospital for further evaluation of his tachycardia. He denies any fever, chills, nausea, vomiting, diarrhea, abdominal pain, chest pain, palpitation, lightheadedness, dizziness. He does report that he was feeling short of breath however he attributed that to being overweight. Workup in the hospital included a chest x-ray which was negative. Initial labs showed a normal white blood cell count of 6.6, troponin 0.058> 0.116, proBNP 182. EKG showed a flutter with RVR w
[2023-09-02] MEDS: HYDROcodone/acetaminophen (*CRX) 10-325 MG TABLET 1 TAB PO ×2 (14:21→23:32)
--- NOTE | 2023-09-02 17:33 | PC.NURSE ---
Pt HR in the 40's, stopped diltiazem drip, pt asymptomatic, BP 134/91. Attempted to notify Dr. Trevino for further orders with no answer X2
--- NOTE | 2023-09-02 17:36 | ECG_ITS ---
Test Date: 2023-09-02 17:48:56 Measurements Intervals [place] Rate: 49 P: 63 NV: 195 QRS: 12 QRSD: 97 T: 145 QT: 520 QTc: 471 Interpretive Statements SINUS BRADYCARDIA LEFT VENTRICULAR HYPERTROPHY WITH ST-T CHANGE ST DEVIATION AND MODERATE T-WAVE ABNORMALITY, CONSIDER ANTEROLATERAL ISCHEMIA BASELINE WANDER- V6 ABNORMAL ECG Compared to ECG 09/02/2023 10:54:42 Atrial fibrillation no longer present Possible ischemia still present Electronically Signed On 09-03-2023 07:44:07 CDT by Mata Green D.O.
--- NOTE | 2023-09-02 18:07 | PC.NURSE ---
Returned phone call from Dr. Trevino, verbal orders to stop diltiazem drip. Give sotalol per orders, contact if HR is less than 50
[2023-09-02] MEDS: MIRTAZAPINE 7.5 MG TABLET PO (20:20)
--- NOTE | 2023-09-02 23:50 | ECG_ITS ---
Test Date: 2023-09-03 09:07:51 Measurements Intervals [place] Rate: 45 P: 64 [place]: 213 QRS: 28 QRSD: 98 T: 147 QT: 550 QTc: 477 Interpretive Statements SINUS BRADYCARDIA WITH FIRST DEGREE AV BLOCK LEFT VENTRICULAR HYPERTROPHY WITH ST-T CHANGE ST DEVIATION AND MODERATE T-WAVE ABNORMALITY, CONSIDER ANTEROLATERAL ISCHEMIA BASELINE WANDER- I, II, III, AVR, AVL, AVF, V1-V5 ABNORMAL ECG Compared to ECG 09/02/2023 17:48:56 First degree AV block now present Electronically Signed On 09-03-2023 09:22:50 CDT by Mata Green D.O.
[2023-09-03] VITALS (14 sets, daily range): BP systolic 114–142; BP diastolic 63–88; PULSE 41–61; RESP 16–20; TEMP 36.2–37; O2SAT 92–100
[2023-09-03 04:27] LABS: Basophils Absolute Auto 0.1 K/mm3 (0.0-0.1); Basophils Percent Auto 1.5 % (0.2-1.2); Eosinophils Absolute Auto 0.3 K/mm3 (0-0.3); Eosinophils Percent Auto 3.9 % (0-4.4); Hematocrit 40.5 % (42.0-52.0); Hemoglobin 13.9 g/dL (14.0-18.0); Immature Granulocyte Absolute 0.06 K/mm3 (0.00-0.031); Immature Granulocyte Percent A 0.8 % (0-0.5); Lymphocytes Absolute Auto 2.04 K/mm3 (0.9-3.2); Lymphocytes Percent Auto 28.2 % (18.3-44.2); Mean Corpuscular HGB Conc 34.3 g/dl (32-36); Mean Corpuscular Hemoglobin 30.7 pg (26-34); Mean Corpuscular Volume 89.4 fl (80-100); Mean Platelet Volume 10.9 fl (7.4-10.4); Monocytes Absolute Auto 0.5 K/mm3 (0.1-0.6); Monocytes Percent Auto 7.3 % (2.6-8.5); Neutrophils Absolute Auto 4.2 K/mm3 (1.3-6.7); Neutrophils Percent Auto 58.3 % (45.5-73.1); Platelet Count Result 196 k/mm3 (150-375); Red Blood Count 4.53 M/mm3 (4.6-6.20); White Blood Count 7.2 K/mm3 (4.5-10.0)
[2023-09-03 04:41] LABS: Alanine Aminotransferase 73 U/L (6-50); Albumin Level 3.9 g/dL (3.5-5.1); Alkaline Phosphatase 58 U/L (38-126); Anion Gap 12 mmol/L (4-12); Aspartate Amino Transferase 124 U/L (17-59); Bilirubin,Total 1.4 mg/dL (0.2-1.3); Blood Urea Nitrogen 27 mg/dL (9-20); Calcium 8.6 mg/dL (8.4-10.2); Carbon Dioxide 27 mmol/L (22-30); Chloride 99 mmol/L (98-107); Estimated CRCL calculation 70 ml/min; Estimated Glomerular Filt Rate 45; Glucose 102 mg/dL (65-110); Potassium 3.2 mmol/L (3.4-5.0); Sodium 138 mmol/L (137-145)
[2023-09-03] MEDS: CEPHALEXIN 500 MG CAPSULE PO ×4 (06:17→20:30)
[2023-09-03] MEDS: LEVOTHYROXINE SODIUM 100 MCG TABLET 200 MCG PO (06:17)
[2023-09-03] MEDS: FENOFIBRATE NANOCRYSTALLIZED 145 MG TABLET PO (08:39)
[2023-09-03] MEDS: APIXABAN 5 MG TABLET PO (08:39)
[2023-09-03] MEDS: lisinopriL 20 MG TABLET 40 MG PO (08:39)
[2023-09-03] MEDS: amLODIPine BESYLATE 10 MG TABLET PO (08:39)
[2023-09-03] MEDS: CHOLECALCIFEROL 1,000 UNITS TABLET 2000 UNITS PO (08:39)
--- NOTE | 2023-09-03 11:15 | PM.PNCARD ---
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 Hold Eliquis because of abnormal ECG and possibility of catheterization on Friday. Will start enoxaparin 1 milligram/kilogram subQ q.12 hours (3) QT prolongation: Code(s): R94.31 - Abnormal electrocardiogram [ECG] [EKG] Status: Acute Assessment and Plan: QTC has prolonged. Will discontinue sotalol. Is in sinus rhythm at this point. (4) Hypokalemia: Onset Date: 08/29/23 Code(s): E87.6 - Hypokalemia Status: Acute Assessment and Plan: Potassium is low today at 3.2. Replace with 40 mEq potassium chloride p.o. x1 (5) Acute renal insufficiency: Code(s): N28.9 - Disorder of kidney and ureter, unspecified Status: Acute Assessment and Plan: Will start normal saline at 75 cc/hour x 1liter (6) Elevated troponin: Code(s): R79.89 - Other specified abnormal findings of blood chemistry Status: Acute Assessment and Plan: Will repeat a troponin. His EKG is evolving and is significant for anterolateral ischemia. In my opinion, he needs a coronary angiogram. Will hold Eliquis. Subjective Date/time seen: 09/03/23 11:15 Interval history: Cardiology follow up for atrial flutter, Date of service 09/03/2023: He denies any chest pain shortness breath a but does feel tired today. He is back in sinus rhythm but with a prolonged QT interval Review of Systems Constitutional: Constitutional: Reports no additional constitutional complaints Eyes: Eyes: Reports no additional eye complaints ENT: Reports system reviewed and no additional complaints, except as documented Cardiovascular: Cardiovascular: Reports palpitations Respiratory: Respiratory: Reports no additional respiratory complaints Gastrointestinal: Gastrointestinal: Reports no additional gastrointestinal complaints Musculoskeletal: Musculoskeletal: Reports no additional musculoskeletal complaints Integumentary/Breasts: Skin/Breast: Reports rash Neurologic: Reports system reviewed and no additional complaints, except as documented Endocrine: Endocrine: Reports no additional endocrine complaints and Reports palpitations Hematologic/Lymphatic: Hematologic/Lymphatic: Reports no additional hematologic/lymphatic complaints Allergic/Immunologic: Allergic/Immunologic: Reports no additional allergic/immunologic complaints Exam Const: General: comfortable and no acute distress Other: Very pleasant gentleman appearing his stated age comfortable cooperative no distress of any kind HENMT: Mouth: Yes moist mucous membranes Eyes: Sclera: sclerae normal Neck: Neck: supple and no JVD Thyroid: thyroid normal Resp: Effort & Inspection: normal respiratory effort Auscultation: clear to auscultation bilaterally Cardio: Rate: regular rate Rhythm: regular rhythm Heart sounds: Murmur heart sound present Other: 3/6 systolic ejection murmur GI: Auscultation: normal bowel sounds Skin: General skin exam: normal color Neuro: Speech: normal speech Other: Alert and oriented x3 Extrem: Other: Good perfusion, no edema Psych: Affect: normal affect Objective Data Vital Signs Vital Signs: Vital Signs - 24 hr 09/02/23 12:00 09/02/23 13:36 09/02/23 13:36 Temperature Pulse Rate 70 119 H 119 H Respiratory Rate Blood Pressure 121/93 H Pulse Oximetry Oxygen Delivery Fraction of Inspired Oxygen 09/02/23 12:00 09/02/23 14:00 09/02/23 14:16 Temperature Pulse Rate 125 H 119 H 119 H Respiratory Rate Blood Pressure 1
--- NOTE | 2023-09-03 11:50 | P.PNIM_ITS ---
Progress Note: A&P Assessment and Plan (1) Elevated troponin: Code(s): R79.89 - Other specified abnormal findings of blood chemistry Status: Acute (2) Acute renal insufficiency: Code(s): N28.9 - Disorder of kidney and ureter, unspecified Status: Acute (3) Atrial flutter with rapid ventricular response: Code(s): I48.92 - Unspecified atrial flutter Status: Acute (4) Hypokalemia: Onset Date: 08/29/23 Code(s): E87.6 - Hypokalemia Status: Acute (5) Tachycardia: Onset Date: 09/01/23 Code(s): R00.0 - Tachycardia, unspecified Status: Acute Plan (1) Atrial flutter with rapid ventricular response: Code(s): I48.92 - Unspecified atrial flutter Status: Acute Assessment and Plan: 09/01/23: * New onset a flutter with RVR * Patient was given 2 doses of metoprolol 5 mg IV push, 10 mg diltiazem while in the ED * He was started on a diltiazem drip at 10 mg per hour * Cardiology consulted * Patient placed on Eliquis 5 mg b.i.d. and sotalol 80 mg b.i.d. * If patient does not convert overnight, will likely need cardioversion 09/02/23: * Patient still in A flutter with RVR with a rate of 120 * Increased Diltiazem up to 7.5 mg per hour for better control, Patient was turned down to 5 mg/hr last night. * Cardiology following and awaiting further input. * Continue Eliquis and Sotalol 09/02: Patient has sinus rhythm, sotalol discontinued because of bradycardia and QT prolongation Elevated troponin EKG showed sinus rhythm now, heart rate 45, ST depression V3 to V6 Hold Eliquis now, start Lovenox therapeutic dose per sales planner, plans cardiac catheterization on Friday * (2) Aortic valve stenosis with insufficiency: Qualifiers: Cardiac valve disease etiology: etiology unspecified Qualified Code(s): I35.2 - Nonrheumatic aortic (valve) stenosis with insufficiency Code(s): I35.2 - Nonrheumatic aortic (valve) stenosis with insufficiency Status: Acute Assessment and Plan: 09/02/23: * Moderate aortic stenosis that progressed to severe on most recent echo per Cardiology note * Will likely need TAVR(3) Cellulitis of leg, left: Onset Date: ~08/28/23 Code(s): L03.116 - Cellulitis of left lower limb Status: Acute Assessment and Plan: 09/01/23: * Continue Keflex * Patient had venous Doppler which was negative for DVT on 08/30/2023 09/02/23: * No change to current treatment plan(4) Essential (primary) hypertension: Code(s): I10 - Essential (primary) hypertension Status: Acute Assessment and Plan: 09/01/23: * Blood pressure ranging 135/84 to 142/101 * Amlodipine-benazepril on hold due to being non formulary * Will continue hydrochlorothiazide * Will start amlodipine 10 mg daily and lisinopril 40 mg daily in replacement of his home med 09/02/23: * Blood pressures ranging 111/81- 137/119 * Continue with treatment plan(5) Hypothyroidism, unspecified: Qualifiers: Hypothyroidism type: unspecified Qualified Code(s): E03.9 - Hypothyroidism, unspecified Code(s): E03.9 - Hypothyroidism, unspecified Status: Acute Assessment and Plan: 09/01/23: * Continue Synthroid 09/02/23: * No change to current treatment plan(6) CHEO on CPAP: Code(s): G47.33 - Obstructive sleep apnea (adult) (pediatric); Z99.89 - Dependence on other enabling machines and devices Status: Acute Assessment and Plan: 09/01/23: * Continue CPAP at night * Patient repo
--- NOTE | 2023-09-03 11:50 | PM.IMPN ---
Progress Note: A&P Assessment and Plan (1) Elevated troponin: Code(s): R79.89 - Other specified abnormal findings of blood chemistry Status: Acute (2) Acute renal insufficiency: Code(s): N28.9 - Disorder of kidney and ureter, unspecified Status: Acute (3) Atrial flutter with rapid ventricular response: Code(s): I48.92 - Unspecified atrial flutter Status: Acute (4) Hypokalemia: Onset Date: 08/29/23 Code(s): E87.6 - Hypokalemia Status: Acute (5) Tachycardia: Onset Date: 09/01/23 Code(s): R00.0 - Tachycardia, unspecified Status: Acute Plan (1) Atrial flutter with rapid ventricular response: Code(s): I48.92 - Unspecified atrial flutter Status: Acute Assessment and Plan: 09/01/23: New onset a flutter with RVR Patient was given 2 doses of metoprolol 5 mg IV push, 10 mg diltiazem while in the ED He was started on a diltiazem drip at 10 mg per hour Cardiology consulted Patient placed on Eliquis 5 mg b.i.d. and sotalol 80 mg b.i.d. If patient does not convert overnight, will likely need cardioversion 09/02/23: Patient still in A flutter with RVR with a rate of 120 Increased Diltiazem up to 7.5 mg per hour for better control, Patient was turned down to 5 mg/hr last night. Cardiology following and awaiting further input. Continue Eliquis and Sotalol 09/02: Patient has sinus rhythm, sotalol discontinued because of bradycardia and QT prolongation Elevated troponin EKG showed sinus rhythm now, heart rate 45, ST depression V3 to V6 Hold Eliquis now, start Lovenox therapeutic dose per [employer], plans cardiac catheterization on Friday (2) Aortic valve stenosis with insufficiency: Qualifiers: Cardiac valve disease etiology: etiology unspecified Qualified Code(s): I35.2 - Nonrheumatic aortic (valve) stenosis with insufficiency Code(s): I35.2 - Nonrheumatic aortic (valve) stenosis with insufficiency Status: Acute Assessment and Plan: 09/02/23: Moderate aortic stenosis that progressed to severe on most recent echo per Cardiology note Will likely need TAVR(3) Cellulitis of leg, left: Onset Date: ~08/28/23 Code(s): L03.116 - Cellulitis of left lower limb Status: Acute Assessment and Plan: 09/01/23: Continue Keflex Patient had venous Doppler which was negative for DVT on 08/30/2023 09/02/23: No change to current treatment plan(4) Essential (primary) hypertension: Code(s): I10 - Essential (primary) hypertension Status: Acute Assessment and Plan: 09/01/23: Blood pressure ranging 135/84 to 142/101 Amlodipine-benazepril on hold due to being non formulary Will continue hydrochlorothiazide Will start amlodipine 10 mg daily and lisinopril 40 mg daily in replacement of his home med 09/02/23: Blood pressures ranging 111/81- 137/119 Continue with treatment plan(5) Hypothyroidism, unspecified: Qualifiers: Hypothyroidism type: unspecified Qualified Code(s): E03.9 - Hypothyroidism, unspecified Code(s): E03.9 - Hypothyroidism, unspecified Status: Acute Assessment and Plan: 09/01/23: Continue Synthroid 09/02/23: No change to current treatment plan(6) CHEO on CPAP: Code(s): G47.33 - Obstructive sleep apnea (adult) (pediatric); Z99.89 - Dependence on other enabling machines and devices Status: Acute Assessment and Plan: 09/01/23: Continue CPAP at night Patient reports compliance 09/02/23: No change to current treatment plan(7) Obesity (BMI 30-39.9): Code(s): E66.9 - Obesity, unspecified Status: Acute Assessment and Plan: 09/01/23: BMI 38.9, 137.3 kg Educated on lifestyle changes 09/02/23: No change to current treatment planTime Spent With Patient Time with patient: 25 - 35 minutes Subjective Date/time seen: 09/03/23 11:50 Interval history: I saw examined patient today, patient
[2023-09-03 11:52] LABS: Magnesium 2.4 mg/dL (1.6-2.3)
[2023-09-03 12:03] LABS: Troponin I 0.205 ng/mL (0.000-0.034)
[2023-09-03] MEDS: SODIUM CHLORIDE 0.9% IV 1,000 ML 75 ML IV CONT (14:49)
[2023-09-03] MEDS: POTASSIUM CHLORIDE 20 MEQ ER TABLET 40 MEQ PO (16:15)
[2023-09-03] MEDS: MIRTAZAPINE 7.5 MG TABLET PO (20:30)
[2023-09-03] MEDS: ENOXAPARIN 40 MG/0.4 ML SYRINGE SUB-Q (20:30)
[2023-09-03] MEDS: ENOXAPARIN 100 MG/ML SYRINGE SUB-Q (20:30)
[2023-09-04] VITALS (13 sets, daily range): BP systolic 113–156; BP diastolic 72–92; PULSE 43–67; RESP 18–20; TEMP 36.1–36.7; O2SAT 95–99
[2023-09-04] MEDS: SODIUM CHLORIDE 0.9% IV 1,000 ML 75 ML IV CONT ×2 (03:30→16:59)
[2023-09-04] MEDS: CEPHALEXIN 500 MG CAPSULE PO ×4 (03:35→20:07)
[2023-09-04 04:59] LABS: Basophils Absolute Auto 0.1 K/mm3 (0.0-0.1); Basophils Percent Auto 1.3 % (0.2-1.2); Eosinophils Absolute Auto 0.3 K/mm3 (0-0.3); Eosinophils Percent Auto 5.3 % (0-4.4); Hematocrit 38.9 % (42.0-52.0); Hemoglobin 13.8 g/dL (14.0-18.0); Immature Granulocyte Absolute 0.05 K/mm3 (0.00-0.031); Immature Granulocyte Percent A 0.8 % (0-0.5); Lymphocytes Absolute Auto 2.36 K/mm3 (0.9-3.2); Lymphocytes Percent Auto 37.8 % (18.3-44.2); Mean Corpuscular HGB Conc 35.5 g/dl (32-36); Mean Corpuscular Hemoglobin 31.5 pg (26-34); Mean Corpuscular Volume 88.8 fl (80-100); Mean Platelet Volume 10.9 fl (7.4-10.4); Monocytes Absolute Auto 0.4 K/mm3 (0.1-0.6); Monocytes Percent Auto 6.4 % (2.6-8.5); Neutrophils Percent Auto 48.4 % (45.5-73.1); Platelet Count Result 171 k/mm3 (150-375); Red Blood Count 4.38 M/mm3 (4.6-6.20); Red Cell Distribution Width 12.9 % (11.5-14.5); White Blood Count 6.2 K/mm3 (4.5-10.0)
[2023-09-04 05:18] LABS: Alanine Aminotransferase 115 U/L (6-50); Albumin Level 3.8 g/dL (3.5-5.1); Alkaline Phosphatase 65 U/L (38-126); Anion Gap 8 mmol/L (4-12); Aspartate Amino Transferase 85 U/L (17-59); Bilirubin,Total 0.6 mg/dL (0.2-1.3); Blood Urea Nitrogen 19 mg/dL (9-20); Calcium 8.4 mg/dL (8.4-10.2); Carbon Dioxide 27 mmol/L (22-30); Chloride 104 mmol/L (98-107); Estimated CRCL calculation 87 ml/min; Estimated Glomerular Filt Rate 58; Glucose 105 mg/dL (65-110); Potassium 3.2 mmol/L (3.4-5.0); Sodium 139 mmol/L (137-145)
--- NOTE | 2023-09-04 06:13 | ECG_ITS ---
Test Date: 2023-09-04 08:51:37 Measurements Intervals [place] Rate: 52 P: 71 NV: 199 QRS: 23 QRSD: 105 T: 163 QT: 502 QTc: 470 Interpretive Statements SINUS BRADYCARDIA LEFT VENTRICULAR HYPERTROPHY WITH ST-T CHANGE ST-T WAVE ABNORMALITY IN ANTEROLATERAL LEADS- CONSIDER ISCHEMIA ABNORMAL ECG Compared to ECG 09/03/2023 09:07:51 HEART RATE HAS INCREASED Electronically Signed On 09-04-2023 09:10:22 CDT by Mata Green D.O.
[2023-09-04] MEDS: LEVOTHYROXINE SODIUM 100 MCG TABLET 200 MCG PO (06:22)
[2023-09-04] MEDS: amLODIPine BESYLATE 10 MG TABLET PO (08:39)
[2023-09-04] MEDS: lisinopriL 20 MG TABLET 40 MG PO (08:39)
[2023-09-04] MEDS: FENOFIBRATE NANOCRYSTALLIZED 145 MG TABLET PO (08:39)
[2023-09-04] MEDS: CHOLECALCIFEROL 1,000 UNITS TABLET 2000 UNITS PO (08:39)
[2023-09-04] MEDS: ENOXAPARIN 100 MG/ML SYRINGE SUB-Q ×2 (08:40→20:07)
[2023-09-04] MEDS: ENOXAPARIN 40 MG/0.4 ML SYRINGE SUB-Q ×2 (08:40→20:07)
--- NOTE | 2023-09-04 09:36 | PM.PNCARD ---
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 Hold Eliquis because of abnormal ECG and possibility of catheterization on Friday. Continue enoxaparin 1 milligram/kilogram subQ q.12 hours will discontinue after this evening's dose. Then likely resume Eliquis (3) QT prolongation: Code(s): R94.31 - Abnormal electrocardiogram [ECG] [EKG] Status: Acute Assessment and Plan: QTC has prolonged. Continue to hold sotalol. Is in sinus rhythm at this point. (4) Hypokalemia: Onset Date: 08/29/23 Code(s): E87.6 - Hypokalemia Status: Acute Assessment and Plan: Potassium is low today at 3.2 again. Will give an additional 40 mEq of potassium chloride times 1 (5) Acute renal insufficiency: Code(s): N28.9 - Disorder of kidney and ureter, unspecified Status: Acute Assessment and Plan: Renal function is better. Continue normal saline at 75 cc/hour today but DC tomorrow after angiogram. (6) Elevated troponin: Code(s): R79.89 - Other specified abnormal findings of blood chemistry Status: Acute Assessment and Plan: Troponin slightly higher than previous. Plan for coronary angiogram tomorrow. He is in agreement. His EKG is evolving and is significant for anterolateral ischemia. Subjective Date/time seen: 09/04/23 09:36 Interval history: Cardiology follow up for atrial flutter, Date of service 09/03/2023: He denies any chest pain shortness breath a but does feel tired today. He is back in sinus rhythm but with a prolonged QT interval Date of service 09/04/2023: Renal function better. Tired but feels okay. No chest pain or shortness of breath. Review of Systems Constitutional: Constitutional: Reports no additional constitutional complaints Eyes: Eyes: Reports no additional eye complaints ENT: Reports system reviewed and no additional complaints, except as documented Cardiovascular: Cardiovascular: Reports palpitations Respiratory: Respiratory: Reports no additional respiratory complaints Gastrointestinal: Gastrointestinal: Reports no additional gastrointestinal complaints Musculoskeletal: Musculoskeletal: Reports no additional musculoskeletal complaints Integumentary/Breasts: Skin/Breast: Reports rash Neurologic: Reports system reviewed and no additional complaints, except as documented Endocrine: Endocrine: Reports no additional endocrine complaints and Reports palpitations Hematologic/Lymphatic: Hematologic/Lymphatic: Reports no additional hematologic/lymphatic complaints Allergic/Immunologic: Allergic/Immunologic: Reports no additional allergic/immunologic complaints Exam Const: General: comfortable and no acute distress Other: Very pleasant gentleman appearing his stated age comfortable cooperative no distress of any kind HENMT: Mouth: Yes moist mucous membranes Eyes: Sclera: sclerae normal Neck: Neck: supple and no JVD Thyroid: thyroid normal Resp: Effort & Inspection: normal respiratory effort Auscultation: clear to auscultation bilaterally Cardio: Rate: regular rate Rhythm: regular rhythm Heart sounds: Murmur heart sound present Other: 3/6 systolic ejection murmur GI: Auscultation: normal bowel sounds Skin: General skin exam: normal color Neuro: Speech: normal speech Other: Alert and oriented x3 Extrem: Other: Good perfusion, no edema Psych: Affect: normal affect Objective Data Vital Signs Vital Signs: Vital Signs - 24 hr 09/03/23 10:00 09/03/23 11:21 09/03/23 12:00 Temperature 36.6 C Pulse
[2023-09-04] MEDS: POTASSIUM CHLORIDE 20 MEQ ER TABLET 40 MEQ PO (12:12)
[2023-09-04] MEDS: MIRTAZAPINE 7.5 MG TABLET PO (20:07)
[2023-09-05] VITALS (15 sets, daily range): BP systolic 120–153; BP diastolic 72–99; PULSE 42–100; RESP 14–19; TEMP 36.4–36.9; O2SAT 94–99
[2023-09-05] MEDS: SODIUM CHLORIDE 0.9% IV 1,000 ML 75 ML IV CONT (04:01)
[2023-09-05] MEDS: CEPHALEXIN 500 MG CAPSULE PO ×3 (04:01→16:57)
[2023-09-05 04:23] LABS: Basophils Absolute Auto 0.1 K/mm3 (0.0-0.1); Basophils Percent Auto 1.3 % (0.2-1.2); Eosinophils Absolute Auto 0.4 K/mm3 (0-0.3); Hematocrit 39.3 % (42.0-52.0); Hemoglobin 13.3 g/dL (14.0-18.0); Immature Granulocyte Absolute 0.06 K/mm3 (0.00-0.031); Lymphocytes Absolute Auto 2.62 K/mm3 (0.9-3.2); Lymphocytes Percent Auto 43.3 % (18.3-44.2); Mean Corpuscular HGB Conc 33.8 g/dl (32-36); Mean Corpuscular Hemoglobin 31.2 pg (26-34); Mean Corpuscular Volume 92.3 fl (80-100); Mean Platelet Volume 10.8 fl (7.4-10.4); Monocytes Absolute Auto 0.5 K/mm3 (0.1-0.6); Monocytes Percent Auto 8.1 % (2.6-8.5); Neutrophils Absolute Auto 2.4 K/mm3 (1.3-6.7); Neutrophils Percent Auto 40.3 % (45.5-73.1); Platelet Count Result 171 k/mm3 (150-375); Red Blood Count 4.26 M/mm3 (4.6-6.20); Red Cell Distribution Width 12.8 % (11.5-14.5); White Blood Count 6.1 K/mm3 (4.5-10.0)
[2023-09-05 04:41] LABS: Alanine Aminotransferase 93 U/L (6-50); Albumin Level 3.6 g/dL (3.5-5.1); Alkaline Phosphatase 55 U/L (38-126); Anion Gap 10 mmol/L (4-12); Aspartate Amino Transferase 70 U/L (17-59); Bilirubin,Total 0.6 mg/dL (0.2-1.3); Blood Urea Nitrogen 12 mg/dL (9-20); Calcium 8.3 mg/dL (8.4-10.2); Carbon Dioxide 24 mmol/L (22-30); Chloride 106 mmol/L (98-107); Estimated CRCL calculation 112 ml/min; Estimated Glomerular Filt Rate > 60; Glucose 94 mg/dL (65-110); Potassium 3.3 mmol/L (3.4-5.0); Sodium 140 mmol/L (137-145)
[2023-09-05] MEDS: LEVOTHYROXINE SODIUM 100 MCG TABLET 200 MCG PO (06:15)
--- NOTE | 2023-09-05 08:09 | PM.IMPN ---
Progress Note: A&P Assessment and Plan (1) Elevated troponin: Code(s): R79.89 - Other specified abnormal findings of blood chemistry Status: Acute (2) Acute renal insufficiency: Code(s): N28.9 - Disorder of kidney and ureter, unspecified Status: Acute (3) Atrial flutter with rapid ventricular response: Code(s): I48.92 - Unspecified atrial flutter Status: Acute (4) Hypokalemia: Onset Date: 08/29/23 Code(s): E87.6 - Hypokalemia Status: Acute (5) Tachycardia: Onset Date: 09/01/23 Code(s): R00.0 - Tachycardia, unspecified Status: Acute Plan 53-year-old male presented for cellulitis evaluation with reported mild redness of the left leg was also tachycardic when he presented to the PCP office. On ED evaluation he was noted to be in atrial flutter with rapid ventricular response. Did not respond to IV metoprolol or diltiazem and was started on IV Diltiazemdrip. This is new onset atrial flutter. He was started on sotalol and was started on anticoagulation with apixaban. He had been since back to sinus rhythm on 09/03/2023. QTC has prolonged and started to have bradycardia and hence sotalol had been on hold. history of moderate aortic stenosis. Repeat echo showed progression to severe aortic stenosis. he will need outpatient workup. Elevated troponin plan for cardiac today. Left lower extremity cellulitis on cephalexin. Venous duplex was negative for DVT on 08/30/23 may need to add MRSA coverage as still has some bumpy spots. Will add doxycycline Hypertension on amlodipine hydrochlorothiazide lisinopril Hyperlipidemia on fenofibrate Hypothyroidism levothyroxine Obstructive sleep apnea on CPAP Obesity with BMI 39 hypokalemia replace TEX on admission resolved Elevated troponin from 0.058 to 0.205. EKG significant for anterolateral ischemia planned for cardiac catheterization per Cardiology DVT prophylaxis on Eliquis Subjective Date/time seen: 09/05/23 08:09 Interval history: Chart reviewed. No new complaints. Redness of the light leg has markedly improved. Going for a cardiac today. 53-year-old male presented for cellulitis evaluation with reported mild redness of the left leg was also tachycardic when he presented to the PCP office. On ED evaluation he was noted to be in atrial flutter with rapid ventricular response. Did not respond to IV metoprolol or diltiazem and was started on IV Diltiazemdrip. This is new onset atrial flutter. He was started on sotalol and was started on anticoagulation with apixaban. He had been since back to sinus rhythm on 09/03/2023. QTC has prolonged and started to have bradycardia and hence sotalol had been on hold. history of moderate aortic stenosis. Repeat echo showed progression to severe aortic stenosis. he will need outpatient workup. Elevated troponin plan for cardiac today. Left lower extremity cellulitis on cephalexin. Venous duplex was negative for DVT on 08/30/23 Hypertension Hypothyroidism Obstructive sleep apnea on CPAP Obesity with BMI 39 hypokalemia replace TEX on admission resolved Elevated troponin EKG significant for anterolateral ischemia planned for cardiac Cardiology DVT prophylaxis on Eliquis Review of Systems Review of Systems: All systems reviewed & are unremarkable except as noted in HPI and below Exam Narrative: GENERAL: Pleasant, in no acute distress. Well-nourished. Obesity - EYES: EOMI. Anicteric. - HENT: Moist mucous membranes. - LUNGS: Clear to auscultation bilaterally, no wheezing, rhonchi, or rales. - CARDIOVASCULAR: Regular rate and rhythm. No murmur. No JVD. - ABDOMEN: Soft, non-tender and non-distended. No palpable masses. - EXTREMITIES: No edema. Peripheral pulses 2+. Non-tender. Right leg with bumpy red spots present - NEUROLOGIC: No focal neurological deficits. CN II-XII grossly intact. - PSYCHIATRIC: Awake, Alert and oriented x 3. Appropriate mood and a
[2023-09-05] MEDS: amLODIPine BESYLATE 10 MG TABLET PO (09:09)
[2023-09-05] MEDS: lisinopriL 20 MG TABLET 40 MG PO (09:09)
[2023-09-05] MEDS: FENOFIBRATE NANOCRYSTALLIZED 145 MG TABLET PO (09:09)
[2023-09-05] MEDS: CHOLECALCIFEROL 1,000 UNITS TABLET 2000 UNITS PO (09:09)
[2023-09-05] MEDS: POTASSIUM CHLORIDE 20 MEQ ER TABLET 40 MEQ PO (09:09)
[2023-09-05] MEDS: LORazepam INJ (*CRX) 2 MG/ML VIAL 0.5 MG IV PUSH (12:15)
--- NOTE | 2023-09-05 12:58 | WPDMODSED ---
Moderate Sedation Note-Pt Data Patient Data Diagnosis: aortic stenosis atrial flutter Present Complaint: no complaints Procedure to be performed/Plan: coronary angiogram Allergies Allergy/AdvReac Type Severity Reaction Status Date / Time No Known Allergies Allergy Verified 09/01/23 11:14 Home Medications Medication Instructions Recorded Confirmed Type cholecalciferol (vitamin D3) 50 2,000 unit PO DAILY 01/04/21 09/01/23 History mcg (2,000 unit) capsule nebivolol 20 mg tablet (Bystolic) 20 mg PO DAILY #90 tabs 02/18/23 09/01/23 Rx fenofibrate nanocrystallized 145 145 mg PO DAILY #90 tabs 04/24/23 09/01/23 Rx mg tablet levothyroxine 200 mcg tablet 200 mcg PO DAILY #90 tabs 07/23/23 09/01/23 Rx cephalexin 500 mg capsule 500 mg PO Q6H 6 days #24 caps 08/30/23 09/01/23 Rx amlodipine 10 mg-benazepril 40 mg 1 cap PO DAILY #90 caps 09/01/23 09/01/23 Rx capsule hydrochlorothiazide 25 mg tablet 25 mg PO . q.a.m. 09/01/23 09/01/23 History Current Medications: Active Medications Acetaminophen (Acetaminophen 325 Mg Tablet) 650 mg PO Q4H PRN PRN Reason: Mild Pain (1-3) or Fever Hydrocodone Bitart/Acetaminophen (Hydrocodone/Acetaminophen (*Crx) 5-325 Mg Tablet) 1 tab PO Q4H PRN PRN Reason: Pain Rated 4-6 Last Admin: 09/02/23 03:51 Dose: 1 tab Hydrocodone Bitart/Acetaminophen (Hydrocodone/Acetaminophen (*Crx) 10-325 Mg Tablet) 1 tab PO Q4H PRN PRN Reason: Pain Rated 7-10 Last Admin: 09/02/23 23:32 Dose: 1 tab Amlodipine Besylate (Amlodipine Besylate 10 Mg Tablet) 10 mg PO DAILY ZULMA Last Admin: 09/05/23 09:09 Dose: 10 mg Apixaban (Apixaban 5 Mg Tablet) 5 mg PO Q12HR ZULMA Last Admin: 09/03/23 08:39 Dose: 5 mg Bisacodyl (Bisacodyl 5 Mg Tablet Ec) 5 mg PO QAM PRN PRN Reason: Constipation Cephalexin HCl (Cephalexin 500 Mg Capsule) 500 mg PO Q6H [facility] Stop: 09/06/23 00:00 Last Admin: 09/05/23 09:09 Dose: 500 mg Enoxaparin Sodium (Enoxaparin 100 Mg/Ml Syringe) 100 mg SUB-Q Q12HR [facility] Last Admin: 09/04/23 20:07 Dose: 100 mg Enoxaparin Sodium (Enoxaparin 40 Mg/0.4 Ml Syringe) 40 mg SUB-Q Q12HR [facility] Last Admin: 09/04/23 20:07 Dose: 40 mg Fenofibrate (Fenofibrate Nanocrystallized 145 Mg Tablet) 145 mg PO DAILY [facility] Last Admin: 09/05/23 09:09 Dose: 145 mg Hydrochlorothiazide (Hydrochlorothiazide 25 Mg Tablet) 25 mg PO . q.a.m. [facility] Sodium Chloride (Normal Saline Iv) 1,000 mls @ 75 mls/hr IV CONT .[id number] [facility] Last Admin: 09/05/23 04:01 Dose: 75 mls/hr Levothyroxine Sodium (Levothyroxine Sodium 100 Mcg Tablet) 200 mcg PO DAILY@0630 [facility] Last Admin: 09/05/23 06:15 Dose: 200 mcg Lisinopril (Lisinopril 20 Mg Tablet) 40 mg PO QAM [facility] Last Admin: 09/05/23 09:09 Dose: 40 mg Mirtazapine (Mirtazapine 7.5 Mg Tablet) 7.5 mg PO HS [facility] Last Admin: 09/04/23 20:07 Dose: 7.5 mg Non-Formulary Medication (Amlodipine-Benazepril) 1 cap PO DAILY [facility] Stop: 10/02/23 08:59 Ondansetron HCl (Ondansetron Inj 4 Mg/2 Ml Vial) 4 mg IV PUSH Q6H PRN PRN Reason: Nausea And Vomiting Vitamin D (Cholecalciferol 1,000 Units Tablet) 2,000 units PO DAILY [facility] Last Admin: 09/05/23 09:09 Dose: 2,000 units Sedation/Anesthesia: No previous sedation/anesthesia problems (including family history). [facility] Past Medical History Medical History Abnormal levels of other serum enzymes AST 47 and ALT 38 on 01/22/2021. AST 32 and ALT 27 on 01/16/2022. Aortic stenosis with mitral and aortic insufficiency echo May, with severe elevated AH with ejection fraction 70% with moderate to severe aortic stenosis with moderate regurgitation with [id number] mitral valve regurgitation and diastolic dysfunction. BMI 38.0-38.9,adult Cellulitis of leg, left (~08/28/23) COVID-19 (~08/2021) Dyspnea on minimal exertion (09/01/23) Encounter for prostate cancer screening PSA 0.5 on . PSA 1.4 on 01/16/2022. PSA 0.6 on 02/22/2023. Encounter f
--- NOTE | 2023-09-05 14:16 | WPDCARDPROC ---
Cardiac Cath Procedure Note Date of procedure:: 09/05/23 Performing physician:: Lev aMrroquin MD Indication:: aortic stenosis atrial flutter abnormal ECG Brief clinical history:: this is a 53-year-old man with significant aortic valve stenosis who presented to the hospital last weekend with atrial flutter. He was medically converted back to sinus following cardioversion there was concern about ECG appearance and the presence or absence of ischemic heart disease. Anticoagulation was then discontinued and coronary angiography has been recommended. Procedure Procedure performed:: Coronary angiogram Sedation/Medication given:: fentanyl 50 mg Versed 2 mg Access site:: right femoral artery Estimated blood loss:: 20 cc Procedure note:: patient was brought to the mobile home laborer in the postabsorptive state where the right femoral triangle was prepared in the normal fashion. Anesthesia was provided with 1% lidocaine infiltrated locally. Using the modified Seldinger technique a 5 Polish sheath was placed into the femoral artery after this I used a 5 Polish FL4 catheter to engage and inject the left coronary artery in multiple projections. Subsequently the right coronary artery was engaged injected using a 5 Polish JR4 catheter. The procedure was uncomplicated and well tolerated. After the angiograms were reviewed an angiogram was done of the femoral artery through the sheath and then an Angio-Seal device was deployed with a good hemostatic result. The procedure was well tolerated and uncomplicated. No groin hematoma was present upon leaving the mobile home laborer Findings:: the left main coronary artery is very large caliber and widely patent the left anterior descending is a large caliber artery extending onto the apex. The LAD and its branches are smooth and angiographically normal in appearance the circumflex is a very large caliber vessel and is dominant to the posterior circulation. The circumflex and its marginal and posterior branches are angiographically smooth and normal in appearance the right coronary artery is moderate caliber and is non dominant. There are 2 RV branches that are smooth and angiographically free of disease Conclusion:: 1. left coronary dominant circulation very large caliber coronary arteries with no coronary disease Lev Marroquin MD [facility]
[2023-09-05] MEDS: HYDROcodone/acetaminophen (*CRX) 10-325 MG TABLET 1 TAB PO (14:35)
--- NOTE | 2023-09-05 14:47 | SUR.PHASEII ---
[place] PO for back pain 12/03
[2023-09-05] MEDS: SODIUM CHLORIDE 0.9% IV 1,000 ML 125 ML IV CONT (15:56)
--- NOTE | 2023-09-05 16:12 | PM.DS ---
DS: Admitting Diagnosis Discharge Date 09/05/2023 Admitting Diagnosis AFib DS: Discharge Diagnosis Discharge Diagnosis (1) Elevated troponin: Code(s): R79.89 - Other specified abnormal findings of blood chemistry Status: Acute (2) Acute renal insufficiency: Code(s): N28.9 - Disorder of kidney and ureter, unspecified Status: Acute (3) Atrial flutter with rapid ventricular response: Code(s): I48.92 - Unspecified atrial flutter Status: Acute (4) Hypokalemia: Onset Date: 08/29/23 Code(s): E87.6 - Hypokalemia Status: Acute (5) Tachycardia: Onset Date: 09/01/23 Code(s): R00.0 - Tachycardia, unspecified Status: Acute DS: Summary Hospital Course Hospital Course: 53-year-old male presented for cellulitis evaluation with reported mild redness of the left leg was also tachycardic when he presented to the PCP office. On ED evaluation he was noted to be in atrial flutter with rapid ventricular response. Did not respond to IV metoprolol or diltiazem and was started on IV Diltiazemdrip. This is new onset atrial flutter. He was started on sotalol and was started on anticoagulation with apixaban. He had been since back to sinus rhythm on 09/03/2023. With sotalol his QTC has prolonged and started to have bradycardia and hence sotalol had been on hold. He has history of moderate aortic stenosis. He will need outpatient workup. Elevated troponin plan with ST-T changes in in anterolateral leads. Cardiology recommended cardiac catheterization which was performed on 09/05/2023 which came back normal. Left lower extremity cellulitis on cephalexin. Venous duplex was negative for DVT on 08/30/23 may need to add MRSA coverage as still has some bumpy spots. Will add doxycycline at discharge and follow-up with PCP Hypertension on amlodipine hydrochlorothiazide lisinopril Hyperlipidemia on fenofibrate Hypothyroidism levothyroxine Obstructive sleep apnea on CPAP Obesity with BMI 39 hypokalemia replace TEX on admission resolved DVT prophylaxis on Eliquis Time Spent with Patient Time attestation: Total time spent providing and/or coordinating discharge services: 35 minutes Exam Narrative: GENERAL: Pleasant, in no acute distress. Well-nourished. Obesity - EYES: EOMI. Anicteric. - HENT: Moist mucous membranes. - LUNGS: Clear to auscultation bilaterally, no wheezing, rhonchi, or rales. - CARDIOVASCULAR: Regular rate and rhythm. No murmur. No JVD. - ABDOMEN: Soft, non-tender and non-distended. No palpable masses. - EXTREMITIES: No edema. Peripheral pulses 2+. Non-tender. Right leg with bumpy red spots present - NEUROLOGIC: No focal neurological deficits. CN II-XII grossly intact. - PSYCHIATRIC: Awake, Alert and oriented x 3. Appropriate mood and affect. - SKIN: No rashes or lesions. Warm. - LYMPH: No cervical lymphadenopathy. DS: Data Data Completed and Pending Labs on day of discharge: Labs from last 24 hours 09/05/23 03:57 WBC 6.1 RBC 4.26 L Hgb 13.3 L Hct 39.3 L MCV 92.3 MCH 31.2 MCHC 33.8 RDW 12.8 Plt Count 171 MPV 10.8 H Immature Gran % (Auto) 1.0 H Neut % (Auto) 40.3 L Lymph % (Auto) 43.3 [place] % (Auto) 8.1 Eos % (Auto) 6.0 H Baso % (Auto) 1.3 H Lymph # (Auto) 2.62 [place] # (Auto) 0.5 Eos # (Auto) 0.4 H Baso # (Auto) 0.1 Abs Immat Gran (auto) 0.06 H Absolute Neuts (auto) 2.4 Absolute Nucleated RBC 0.000 Nucleated RBC % 0.0 Sodium 140 Potassium 3.3 L Chloride 106 Carbon Dioxide 24 Anion Gap 10 BUN 12 D Creatinine 1.00 Estim Creat Clear Calc 112 Estimated GFR > 60 Glucose 94 Calcium 8.3 L Total Bilirubin 0.6 AST 70 H ALT 93 H Alkaline Phosphatase 55 Total Protein 6.0 L Albumin 3.6 Procedures/Treatments: Cardiac Cath Procedure Note Date of procedure:: 09/05/23 Performing physician:: Lev Marroquin MD Indication:: aortic stenosis atrial flutter abnormal ECG B
[2023-09-05] MEDS: DOXYCYCLINE HYCLATE 100 MG TABLET PO (16:58)
== END 2023-09-05 18:12 | disposition home or self-care (01) | DRG 287 ==
LOC: ANHED 10:14 → ANHIMU 13:16
PROVIDERS: Internal Medicine Cardiovascular Disease; Nurse Practitioner Acute Care; Specialist; Admitting Provider Internal Medicine; Emergency Provider Emergency Medicine; PCP Family Medicine; Visit Provider Internal Medicine
PROC: 4A023N7 Measurement of Cardiac Sampling and Pressure, Left Heart, Percutaneous Approach (ICD-10-PCS; CPT 93454; principal; 2023-09-05 13:00)
PROC: 4A023N7 Measurement of Cardiac Sampling and Pressure, Left Heart, Percutaneous Approach (ICD-10-PCS; 2023-09-05 13:00)
DX: I48.92 Unspecified atrial flutter (principal); L03.116 Cellulitis of left lower limb; I35.2 Nonrheumatic aortic (valve) stenosis with insufficiency; I34.0 Nonrheumatic mitral (valve) insufficiency; I10 Essential (primary) hypertension; I71.60 Thoracoabdominal aortic aneurysm, without rupture, unspecified; R00.1 Bradycardia, unspecified; R94.31 Abnormal electrocardiogram [ECG] [EKG]; R79.89 Other specified abnormal findings of blood chemistry; E87.6 Hypokalemia; E55.9 Vitamin D deficiency, unspecified; E03.9 Hypothyroidism, unspecified; E78.5 Hyperlipidemia, unspecified; E66.9 Obesity, unspecified; G47.33 Obstructive sleep apnea (adult) (pediatric); F12.90 Cannabis use, unspecified, uncomplicated; Z87.891 Personal history of nicotine dependence; Z87.442 Personal history of urinary calculi
CPT/HCPCS: 36415; 71046; 80053; 81001; 83605; 83735; 83880; 84484; 85025; 85055; 85380; 85610; 85730; 93005; 93454; 93970; 96360; 96365; 96366; 96375; 96376; 99285; A9270; C1760; C1887; C1894; G0269; G0378; J1644; J1650; J2060; J2250; J3010; J7030; J7040